=== PATIENT | female | born 1995 ===

== ENCOUNTER 2021-05-25 00:21 | Emergency (ER) | payer SELFPAY ==
--- NOTE | 2021-05-25 01:04 | Emergency Department Report ---
ED Anxiety HPI - General Chief Complaint: Anxiety Stated Complaint: ANXIETY Time Seen by Provider: 05/25/21 00:58 Source: patient, EMS Mode of arrival: Stretcher - History of Present Illness Initial Comments: Patient came in from work after having an episode of chest pain. She described as tightness and heaviness. She had an impending sense of doom. She felt as though she could not breathe. She reports numbness and tingling in her hands and feet. Symptoms lasted for at least 30 minutes to an hour. They have slowly started to resolve. She never had pain like this before. She never had symptoms like this before. She has no history of recent travel or trauma. She does not drink a lot of caffeine. There is no history of recent illness otherwise. Because of this happened at work, she came here for further treatment and evaluation. - Related Data Home Medications: Previous Rx's Medication Instructions Recorded Last Taken Type hydrOXYzine HCL [Atarax] 25 mg PO Q6HR PRN #20 tablet 05/25/21 Unknown Rx Allergies/Adverse Reactions: Allergies Allergy/AdvReac Type Severity Reaction Status Date / Time No Known Allergies Allergy Unverified 05/25/21 00:41 ED Review of Systems ROS: Stated complaint: ANXIETY Other details as noted in HPI Comment: All other systems reviewed and negative Constitutional: denies: fever Eyes: denies: eye pain ENT: denies: throat pain Respiratory: denies: cough Cardiovascular: as per HPI Endocrine: denies: unexplained weight loss Gastrointestinal: denies: abdominal pain Genitourinary: denies: dysuria Musculoskeletal: denies: back pain Skin: denies: rash Neurological: denies: headache Psychiatric: as per HPI Hematological/Lymphatic: denies: easy bruising ED Past Medical Hx - Past Medical History Previous Medical History?: No - Surgical History Past Surgical History?: Yes Additional Surgical History: - Family History Family history: no significant - Medications Home Medications: Home Medications Medication Instructions Recorded Confirmed Last Taken Type hydrOXYzine HCL [Atarax] 25 mg PO Q6HR PRN #20 tablet 05/25/21 Unknown Rx ED Physical Exam - General Limitations: No Limitations, Other ( Pulse ox was noted and normal. Is not hypoxic.) General appearance: alert, in no apparent distress - Head Head exam: Present: atraumatic, normocephalic, normal inspection - Eye Eye exam: Present: normal appearance, EOMI. Absent: scleral icterus - ENT ENT exam: Present: normal exam, normal orophraynx - Neck Neck exam: Absent: meningismus - Respiratory Respiratory exam: Present: normal lung sounds bilaterally. Absent: respiratory distress - Cardiovascular Cardiovascular Exam: Present: regular rate, normal rhythm - GI/Abdominal GI/Abdominal exam: Present: soft. Absent: distended - Extremities Exam Extremities exam: Present: normal capillary refill - Back Exam Back exam: Present: full ROM - Neurological Exam Neurological exam: Present: alert, oriented X3, CN II-XII intact, normal gait. Absent: motor sensory deficit - Psychiatric Psychiatric exam: Present: anxious - Skin Skin exam: Present: warm, dry ED Course - Reevaluation(s) Reevaluation #1: 05/25/21 01:03 patient was discharged. ED Medical Decision Making - Medical Decision Making Patient presented with symptoms consistent with anxiety. This does seem to be related to a panic attack. She has no cardiac risk factors. There is no history of caffeine or stimulant abuse. She has no neurologic deficit at this time. She is in no distress. There has been no history of palpitations and there is no tachycardia here. I do not believe this represented SVT or any other dysrhythmia. Patient was treated empirically with Vistaril as needed and referred for outpatient evaluation and follow-up. Critical Care Time: No Critical care attestation.: If time is entered above; I have spent that time in minutes in the direct care of this critically ill patient, excluding procedure time. ED Disposition Clinical Impression: Anxiety Disposition: 01 HOME / SELF CARE / HOMELESS Is pt being admited?: No Does the pt Need Aspirin: No Condition: Stable Instructions: Managing Anxiety, Adult Additional Instructions: Avoid caffeine. Drink water. Return for problems. Prescriptions: hydrOXYzine HCL [Atarax] 25 mg PO Q6HR PRN #20 tablet PRN Reason: Anxiety Referrals: PRIMARY CARE, [Referring] - 3-5 Days DAVID NAYAK MD [Staff Physician] - 3-5 Days Print Language: CROATIAN
== END 2021-05-25 01:55 | disposition home or self-care (01) ==
LOC: ED 00:21
DX: F41.9 Anxiety disorder, unspecified (principal); Z98.890 Other specified postprocedural states; Z79.899 Other long term (current) drug therapy
CPT/HCPCS: 99283